=== PATIENT | female | born 1945 | race African-American/Black ===

== ENCOUNTER 2016-07-31 07:43 | Day surgery (SDC) | payer MEDICARE, OTHER ==
[2016-07-30 15:43] LABS: HEMATOCRIT 36.6 % (36.0-48.0); HEMOGLOBIN 13.5 g/dL (12.0-16.0)
[2016-07-30 15:57] LABS: CHLORIDE, SERUM 108 MMOL/L (96-112); CO2 (CARBON DIOXIDE) 29 MMOL/L (24-34); GFR AFRICAN AMERICAN 58 ML/MIN (>=60); GFR NON AFRICAN AMERICAN 50 ML/MIN (>=60); SODIUM, SERUM 145 MMOL/L (135-148)
[2016-07-30 15:58] LABS: BUN (BLOOD UREA NITROGEN) 15 MG/DL (6-23); GLUCOSE, SERUM 152 MG/DL (60-99); POTASSIUM, SERUM 3.5 MMOL/L (3.5-5.3)
[~2016-07-31 07:43] MED LIST: AMIT25 PO; ATEN50 PO; BYDUREON2 MG SQ; COLCRYS0.6 MG PO; GLUCOTRO10 PO; HYZAAR 100/25 T1 TAB PO; KLOR-CON 1010 MEQ PO; L20 PO; LEVOTHYROXIN25 MCG PO; LIOR10 PO; MSCONT15 PO; NEXIUM40 PO; NORCO1 TA2 PO; NORCO1 TAB PO; NXL3 PO; VENTOLIN HFA INH; Z300 PO
== END 2016-07-31 23:59 | disposition home or self-care (01) ==
LOC: SDC 07:43
PROVIDERS: Ophthalmology
PROC: 08RJ3JZ Replacement of Right Lens with Synthetic Substitute, Percutaneous Approach (ICD-10-PCS; principal; 2016-07-31 10:00)
DX: H25.11 Age-related nuclear cataract, right eye (principal); I10 Essential (primary) hypertension; E11.9 Type 2 diabetes mellitus without complications; J44.9 Chronic obstructive pulmonary disease, unspecified; I25.10 Atherosclerotic heart disease of native coronary artery without angina pectoris; Z88.2 Allergy status to sulfonamides; Z88.6 Allergy status to analgesic agent; Z90.49 Acquired absence of other specified parts of digestive tract; Z85.42 Personal history of malignant neoplasm of other parts of uterus; M19.90 Unspecified osteoarthritis, unspecified site; Z98.42 Cataract extraction status, left eye; Z96.1 Presence of intraocular lens; Z79.899 Other long term (current) drug therapy; Z79.891 Long term (current) use of opiate analgesic
CPT/HCPCS: 80048; 82962; 85014; 85018; 93005; J2405; J3010